=== PATIENT | female | born 1965 | race Two or more races ===

== ENCOUNTER 2019-12-28 06:26 | Day surgery (SDC) | payer OTHER | END 2019-12-28 11:10 | disposition home or self-care (01) | LOC: AMB-ENDOS 06:26 | PROVIDERS: ATTEND Surgery | DX: D13.2 Benign neoplasm of duodenum (principal); K29.50 Unspecified chronic gastritis without bleeding; Z20.828 Contact with and (suspected) exposure to other viral communicable diseases; K44.9 Diaphragmatic hernia without obstruction or gangrene ==